=== PATIENT | female | born 2000 | race Two or more races ===

== ENCOUNTER 2023-02-02 19:03 | Emergency (ER) | payer MEDICAID ==
[~2023-02-02] VITALS: Ht 152.4 cm; Wt 50.0 kg
[2023-02-02 19:09] VITALS: TEMP 97.8
[2023-02-02 19:41] LABS: BASOPHILS % (AUTO) 0.4 % (0.0-2.0); EOSINOPHILS % (AUTO) 1.5 % (1.0-6.0); HEMATOCRIT 38.9 % (36-46); HEMOGLOBIN 13.2 g/dL (12.0-16.0); LYMPHOCYTES # (AUTO) 2.1 K/uL (1.0-4.8); LYMPHOCYTES % (AUTO) 24.8 % (22.0-44.0); MEAN CORPUSCULAR HEMOGLOBIN 28.6 pg (26.0-34.0); MEAN CORPUSCULAR VOLUME 84 fL (80-100); MONOCYTES # (AUTO) 0.4 K/uL (0.1-1.0); MONOCYTES % (AUTO) 4.8 % (2.0-9.0); NEUTROPHILS # (AUTO) 5.8 K/uL (1.8-7.7); NEUTROPHILS % (AUTO) 68.5 % (40.0-70.0); PLATELET COUNT (AUTO) 353 K/uL (150-450); RED BLOOD CELL COUNT(AUTO) 4.63 MIL/uL (4.00-5.20); RED CELL DISTRIBUTION WIDTH 14.8 % (11.5-14.5); WHITE BLOOD COUNT (AUTO) 8.5 K/uL (4.5-11.0)
[2023-02-02 20:09] LABS: ANION GAP 10 mmol/L (8-16); CALCIUM, TOTAL 9.5 mg/dL (8.8-10.5); CARBON DIOXIDE 26 mmol/L (22-29); CHLORIDE 100 mmol/L (98-107); CREATININE 0.49 mg/dL (0.60-1.30); GLOMERULAR FILTR. RATE CALC > 60 mL/min (>60); GLUCOSE,RANDOM 86 mg/dL (70-110); POTASSIUM 3.7 mmol/L (3.5-5.1); SODIUM SERUM 136 mmol/L (136-145); UREA NITROGEN, BLOOD 5 mg/dL (7-18)
[2023-02-02 20:46] LABS: ALANINE AMINOTRANSFERASE 33 U/L (12-78); ALBUMIN 3.4 g/dL (3.4-5.0); ALKALINE PHOSPHATASE 76 U/L (46-116); ASPARTATE AMINOTRANSFERASE 20 U/L (15-37); BILIRUBIN,TOTAL 0.2 mg/dL (0.1-1.0); LIPASE 30 U/L (16-77); TOTAL PROTEIN, SERUM 7.4 g/dL (6.4-8.2)
[2023-02-02] MEDS ORDERED: ONDANSETRON HCL 4 MG TABLET PO ONE (21:00)
[2023-02-02 21:12] LABS: APPEARANCE,URINE CLEAR (CLEAR); BILIRUBIN,URINE NEGATIVE (NEGATIVE); COLOR,URINE COLORLESS (YELLOW); GLUCOSE, URINE (UA) NEGATIVE (NEGATIVE); KETONES,URINE NEGATIVE (NEGATIVE); LEUKOCYTE ESTERASE ,URINE NEGATIVE (NEGATIVE); NITRATE,URINE NEGATIVE (NEGATIVE); OCCULT BLOOD,URINE NEGATIVE (NEGATIVE); PH,URINE 5.5 (5.0-8.0); PROTEIN,URINE NEGATIVE (NEGATIVE); SPECIFIC GRAVITIY, URINE 1.006 (1.003-1.030); UROBILINOGEN,URINE <=1.0 mg/dL (<=1.0)
[2023-02-02 21:59] VITALS: BP 138/86; PULSE 87; RESP 16
== END 2023-02-02 22:01 | disposition home or self-care (01) ==
LOC: EMS 19:05
DX: O26.891 Other specified pregnancy related conditions, first trimester (principal); R11.2 Nausea with vomiting, unspecified; Z3A.12 12 weeks gestation of pregnancy
CPT/HCPCS: 99284; 76801; 80053; 81003; 83690; 84702; 85025; 36415; Q0162